=== PATIENT | female | born 1995 | race Caucasian/White ===

== ENCOUNTER 2020-08-09 10:50 | Outpatient (REF) | payer BC, SELFPAY ==
--- NOTE | 2020-08-09 10:10 | PAPFT_PTH ---
PATIENT: MARGIE STUBBS LOC: [facility] U#:[id number] AGE/SX: 24/F ROOM: RE08/09/[address]: Dinorah Mortensen NP : 1995 BED: DIS: 08/09/2020 SPEC #: [id number] RECD: 08/09/20 12:50 STATUS: ANGELINA ENGLE #: [id number] ALFRED: 08/09/20 10:[address]: Dinorah Mortensen NP DEPT: [facility] Cytology RECD BY: Angella Valadez ENTERED: 08/09/20 12:50 SP TYPE: PAPFT OT DR: None Tissues: 1 - CX/ENDOCX FOR PAP SMEARS Procedures: PAP THIN PREP/[facility] Screening Comments: [id number]
== END 2020-08-09 11:10 ==
LOC: LBN 10:50
PROVIDERS: Visit Provider Nurse Practitioner Women's Health
DX: Z12.4 Encounter for screening for malignant neoplasm of cervix (principal)
CPT/HCPCS: 88142